=== PATIENT | female | born 1955 | race Hispanic/Latino ===

== ENCOUNTER → 2017-11-09 | Outpatient (CLI) | payer OTHER ==
[2017-11-09 12:40] LABS: BLOOD UREA NITROGEN 19 mg/dL (7-26); BUN/CREATININE RATIO 21 (6-25); CREATININE, SERUM 0.89 mg/dL (0.57-1.11); EST GLOMERULAR FILTRATION RATE > 60 ML/MIN (60-)
--- NOTE | 2017-11-09 18:17 | Diagnostic Imaging Report ---
PROCEDURE: MRI ABDOMEN WOW TECHNIQUE: Axial T1 in and out of phase, axial T2, fat-sat, coronal, T2 with and without fat-sat, axial ASSETT, axial DWI, and ADC MR images of the abdomen were performed before the intravenous administration of 13 cc of gadolinium. Dynamic axial T1 GRE images in precontrast, arterial, venous and delayed phases were performed, as well as delayed postcontrast axial ASSETT. COMPARISON: Patients [facility], MRI, MRI ABDOMEN WOW, 05/21/2017, 9:53. INDICATIONS: Cirrhosis followup FINDINGS: LOWER THORAX: Lung bases are clear. LIVER: Liver measures 10.2 cm in the right mid clavicular line. Nodular contour, consistent with cirrhosis. No lesion with arterial enhancement or restricted diffusion. Stable 1.3 cm T1 hyperintense, T2, isointense nodule in hepatic segment V/ (series 11, image 19), which shows no postcontrast enhancement on subtraction images or restricted diffusion, likely representing a dysplastic nodule. BILIARY: No ductal dilatation or filling defect. Stable cholelithiasis. No wall thickening or pericholecystic fluid. No intraluminal filling defects in the common bile duct. PANCREAS: No mass or ductal dilatation. SPLEEN: Stable splenomegaly, measuring 16.5 cm in AP diameter. ADRENALS: No nodules. KIDNEYS: No hydronephrosis or solid, enhancing mass in the imaged portion of the kidneys. Stable 0.7 cm T2 hyperintense, nonenhancing simple cyst in the left kidney (series 6 and image 27). PERITONEUM / RETROPERITONEUM: A small amount of perihepatic ascites (for example series 6, image 14).. LYMPH NODES: No upper abdominal lymphadenopathy. VESSELS: The portal vein is enlarged, measuring 1.8 cm., Stable nonocclusive thrombus near the portal confluence (series 11, once image 168). Recanalized umbilical vein. Multiple esophageal varices are again noted. BONES AND SOFT TISSUES: No abnormal bone marrow signal. Soft tissues are grossly unremarkable. IMPRESSION: 1. Cirrhotic liver, with evidence of portal hypertension manifested by splenomegaly, dilated portal vein, and collateral circulation. 2. No suspicious arterially enhancing lesions are identified. 3. Stable 1.3 cm lesion in hepatic segment V/, likely representing a dysplastic nodule. 4. Stable nonocclusive thrombus in the portal conference. Justin Haynes M.D. Dictated by: Justin Haynes M.D. on 11/09/2017 at 18:19 Electronically approved by: Justin Haynes M.D. on 11/09/2017 at 18:19
== END ==
LOC: MRI 09:09
PROVIDERS: ATTEND Internal Medicine Hepatology
DX: K74.69 Other cirrhosis of liver (principal)
CPT/HCPCS: 36415; 74183; 82565; 84520

== ENCOUNTER → 2021-04-04 | Outpatient (CLI) | payer MEDICARE ==
[2021-04-02 08:42] LABS: BASOPHILS % 0.7 % (0.0-1.0); EOSINOPHILS # (AUTO) 0.1 (0.0-0.4); EOSINOPHILS % 1.7 % (0.0-6.0); HEMOGLOBIN 11.3 g/dL (12.0-16.0); LYMPHOCYTES # (AUTO) 0.4 (1.0-3.2); LYMPHOCYTES % 9.2 % (18.0-39.1); MEAN CORPUSCULAR HEMOGLOBIN 32.2 pg (28-32); MEAN CORPUSCULAR HGB CONC 33.2 g/dL (31-35); MEAN CORPUSCULAR VOLUME 96.9 fL (81-99); MONOCYTES # (AUTO) 0.3 (0.2-0.8); MONOCYTES % 8.5 % (4.4-11.3); NEUTROPHILS # (AUTO) 3.2 (2.1-6.9); NEUTROPHILS % 79.4 % (38.7-80.0); PLATELET COUNT 53 x10e3/uL (140-360); RED BLOOD COUNT 3.51 x10e6/uL (3.6-5.1); RED CELL DISTRIBUTION WIDTH 14.4 % (11.7-14.4)
[2021-04-02 08:52] LABS: INR 1.38; PROTHROMBIN TIME 17.5 seconds (11.9-14.5)
[2021-04-02 08:53] LABS: PARTIAL THROMBOPLASTIN TIME 38.1 seconds (23.8-35.5)
[2021-04-02 09:03] LABS: ANION GAP 12.9 mmol/L (8-16); CALCIUM 8.9 mg/dL (8.4-10.2); CREATININE, SERUM 0.98 mg/dL (0.57-1.11); POTASSIUM 3.9 mmol/L (3.5-5.1)
[2021-04-02 09:16] LABS: PLATELET ESTIMATE MODERATELY DECREASED; PLATELET MORPHOLOGY COMMENT NORMAL; RBC MORPHOLOGY COMMENT NORMAL
[~2021-04-04] MED LIST: CEFTRIAXONE 1 GM VIAL ONE; IOPAMIDOL 370 MG/ML 200 ML INFUS..BTL INJ ONE; LACTATED RINGER'S 1,000 ML ONE; SODIUM CHLORIDE 0.9% 100 ML ONE; SODIUM CHLORIDE 0.9% 1000ML 1,000 ML ONE; SODIUM CHLORIDE 0.9% 500ML 0 ML ONE; SODIUM CHLORIDE 0.9% 50ML 50 ML ONE
[2021-04-04 11:40] VITALS: BP 106/62
== END ==
LOC: CT 08:50
PROVIDERS: ATTEND Internal Medicine
DX: C22.0 Liver cell carcinoma (principal); B18.2 Chronic viral hepatitis C; Z20.822 Contact with and (suspected) exposure to COVID-19
CPT/HCPCS: 36415 ×2; 71046; 77012; 80048; 82948; 85025; 85610; 85730; 93005; J0696; J7030; J7050; J7121; Q9967; U0002; J7040

== ENCOUNTER → 2021-06-05 | Outpatient (CLI) | payer MEDICARE | LOC: MAMMO 10:31 | PROVIDERS: ATTEND Internal Medicine | DX: R92.2 Inconclusive mammogram (principal) | CPT/HCPCS: 77066 ==